=== PATIENT | female | born 1970 | race Caucasian/White ===

== ENCOUNTER → 2018-07-10 | Outpatient (CLI) | payer OTHER ==
[2015-12-15 13:22] VITALS: BMI 19.2
[~2018-07-10] MED LIST: ACET-1718 PO; CLOB15OI16 TP; IBUP800T37 PO; LEVO50TA80 PO; MET70GEL PV; SUMA50TA35 PO
--- NOTE | 2018-07-10 17:23 | RADIOLOGY IMAGING REPORT ---
FACILITY: [facility] - [place] PATIENT NAME: EZ GILLETTE : [id number] MR: [id number] V: [id number] EXAM DATE: [id number] ORDERING PHYSICIAN: FAN HALE TECHNOLOGIST: Lucia Sylvester PROCEDURE:BILATERAL DIGITAL SCREENING MAMMOGRAM WITH CAD ASSISTED INTERPRETATION & 3D TOMOSYNTHESIS COMPARISON:Prior mammograms 07/12/17, 07/11/16, 07/05/15, 07/14/14, 07/16/13, 07/14/13. INDICATIONS:SCREENING FINDINGS: Dense heterogeneous fibroglandular tissue is seen throughout the breasts. The parenchymal pattern has remained stable allowing for difference in mammographic technique & patient positioning. There is no evidence of malignant appearing mass, malignant appearing calcifications or other secondary sign of malignancy in either breast. DIAGNOSTIC CATEGORY 1--NEGATIVE. RECOMMENDATIONS: ROUTINE MAMMOGRAM AND CLINICAL EVALUATION. IMPRESSION: BIRADS 1: Negative. No significant abnormality is seen. Dictated by: Neema Hernandez M.D. on 07/10/2018 at 8:59 Transcribed by: MIS on 07/10/2018 at 9:34 Approved by: Neema Hernandez M.D. on 07/10/2018 at 17:22 [facility]
== END ==
LOC: MAMO 01:11
PROVIDERS: ATTEND Obstetrics & Gynecology
DX: Z12.31 Encounter for screening mammogram for malignant neoplasm of breast (principal)
CPT/HCPCS: 77063; 77067

== ENCOUNTER → 2018-11-05 | Outpatient (CLI) | payer OTHER ==
[2015-12-15 13:22] VITALS: BMI 19.2
[~2018-11-05] MED LIST changes: +ALEN70TA43 PO; +DIPH0.5D12 IM; +MULT-1335 PO
--- NOTE | 2018-11-05 16:47 | RADIOLOGY IMAGING REPORT ---
FACILITY: [facility] PATIENT NAME: Irasema Smith : 1970 MR: [id number] V: [id number] EXAM DATE: ORDERING PHYSICIAN: DAVID SEALS TECHNOLOGIST: Location: [facility] Patient: Irasema Smith : 1970 Visit/Account:[id number] Date of Sevice: 11/05/2018 BONE DENSITY HISTORY: thin body build, family history of osteoporosis DEXA Scan Clinical history: Osteopenia. Comparison: None available. LUMBAR SPINE: The bone mineral density (BMD) measured from L1-L4 correlates with a Z-score -2.4 and a T-score of -3 .0 which is osteoporosis as defined by the World Health Organization. The corresponding risk of frac ture in the lumbar spine is increased 8 times compared with a young adult reference population. HIP: Bone mineral density (BMD) measured in the Left total hip region correlates with a Z-score -1.5 and a T-score of -2.1 which is osteopenia as defined by the World Health Organization. The corresponding risk of fracture in the hip is increased over 4 times compared with a young adult reference populatio n. Bone mineral density (BMD) measured in the Femoral Neck region measures 0.726 g/cm2. T score -2.2. Osteopenia. Fracture risk increased 5 times Impression: 1. Lumbar spine: Osteoporosis. 2. Left Total Hip: Osteopenia 3. Femoral Neck: Bone Mineral Density is 0.726 g/cm2. Osteopenia The next DEXA scan of this patient should include the following sites: L1-L4 and the left hip. FRAX? WHO Fracture Risk Assessment Tool link: <http://www.shef.ac.uk/FRAX/tool.jsp?locationValue=9> PLEASE NOTE: 1) The World Health Organization defines low BMD as follows: T-score Normal > -1 Osteopenia < -1 and > -2.5 Osteoporosis < -2.5 without fractures Established osteoporosis < -2.5 with fractures 2) In general, you may wish to consider: Diagnosis Treatment Follow-up DEXA Normal BMD Prevention 2-3 years Osteopenia Prevention/therapy 1-2 years Osteoporosis Therapy Yearly 3) Fracture risk estimated from the T-score is more accurate for vertebral fractures (often spontane ous) than for hip fractures. Report Dictated By: Lauro Najera MD at 11/05/2018 4:39 PM Report E-Signed By: Lauro Najera MD at 11/05/2018 4:41 PM BUSTERN:AURY
== END ==
LOC: RAD 13:53
PROVIDERS: ATTEND Obstetrics & Gynecology
DX: M81.0 Age-related osteoporosis without current pathological fracture (principal); M85.88 Other specified disorders of bone density and structure, other site
CPT/HCPCS: 77080